=== PATIENT | female | born 1990 | race Caucasian/White ===

== ENCOUNTER 2019-02-12 00:34 | Emergency (ER) | payer MEDICARE, MEDICAID, BC ==
[~2019-02-12] VITALS: Ht 172.7 cm; Wt 68.0 kg
[2019-02-12 00:39] VITALS: BP 134/82
--- NOTE | 2019-02-12 00:39 | ED.ADGEN ---
Past History Past Medical History: Anxiety, Depression Adult General Chief Complaint Chief Complaint ". I ve been puking non- stop tonight... I did have two shots.. and a beer... but I think I am having an allergic reaction..." [facility] HPI Patient is a 28 year old female who presents with above hx and complaints of allergic reaction. Patient has had vomiting. Point of dry heaves. Patient states last time she had symptoms like this she had intake of coconut. 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 He does admit to drinking some alcohol tonight. No other suspicious food intake other than some stew. Patient denies any risk of no recent travel or specific ill contacts. Review of Systems Review of Systems Constitutional: Denies fever or chills [] Eyes: Denies change in visual acuity, redness, or eye pain [] HENT: Denies nasal congestion or sore throat [] Respiratory: Denies cough or shortness of breath [] Cardiovascular: No additional information not addressed in HPI [] GI: Complaints of abdominal pain, nausea, vomiting,. Denies bloody stools or diarrhea [] : Denies dysuria or hematuria [] Musculoskeletal: Denies back pain or joint pain [] Integument: Denies rash or skin lesions [] Neurologic: Denies headache, focal weakness or sensory changes [] Endocrine: Denies polyuria or polydipsia [] All other systems were reviewed and found to be within normal limits, except as documented in this note. Family History Family History Non-contributory Current Medications Current Medications Current Medications Medications (Trade) Dose Ordered Sig/Saeid Start Time Stop Time Status Last Admin Dose Admin Albuterol/ Ipratropium (Duoneb) 3 ml 1X ONCE 02/12/19 01:00 02/12/19 01:01 DC 02/12/19 01:23 3 ML Diphenhydramine HCl (Benadryl) 50 mg 1X ONCE 02/12/19 01:00 02/12/19 01:01 DC 02/12/19 01:27 50 MG Famotidine (Pepcid Vial) 20 mg 1X ONCE 02/12/19 01:00 02/12/19 01:01 DC 02/12/19 01:27 20 MG Lactated Ringer's 1,000 ml @ 1,000 mls/hr Q1H 02/12/19 01:00 02/12/19 01:59 DC 02/12/19 01:27 1,000 MLS/HR Magnesium Hydroxide (Milk Of Magnesia) 2,400 mg 1X ONCE 02/12/19 01:30 02/12/19 01:31 DC 02/12/19 01:27 2,400 MG Methylprednisolone Sodium Succinate (SOLU-Medrol 125MG VIAL) 125 mg 1X ONCE 02/12/19 01:00 02/12/19 01:01 DC 02/12/19 01:27 125 MG See Nursing for home med. Allergies Allergies Allergies Coded Allergies Type Severity Reaction Last Updated Verified No Known Drug Allergies 02/12/19 No Physical Exam Physical Exam Constitutional: moderate acute distress, non-toxic appearance. [] HENT: Normocephalic, atraumatic, bilateral external ears normal, oropharynx moist, no oral exudates, nose normal. [] Eyes: PERRLA, EOMI, conjunctiva normal, no discharge. [] Neck: Normal range of motion, no tenderness, supple, no stridor. [] Cardiovascular: Tachycardia Heart rate regular rhythm, no murmur [] Lungs & Thorax: Bilateral breath sounds equal at apexes with few scattered wheezes on auscultation [] Abdomen: Bowel sounds hyperactive, soft, no tenderness, no masses, no pulsatile masses. [] Skin: Warm, dry, no erythema, no rash. [] tattoos. Back: No tenderness, no CVA tenderness. [] Extremities: No tenderness, no cyanosis, no clubbing, ROM intact, no edema. [] Neurologic: Alert and oriented X 3, normal motor function, normal sensory function, no focal deficits noted. [] Psychologic: Affect anxious, judgement normal, mood normal. [] Current Patient Data Vital Signs Vital Signs Date Time Temp Pulse Resp B/P (MAP) Pulse Ox O2 Delivery O2 Flow Rate FiO2 02/12/19 01:27 99 Room Air 02/12/19 00:39 98.4 93 18 Lab Results Laboratory Tests Test 02/12/19 01:15 02/12/19 01:55 White Blood Count 10.7 x10^3/uL (4.0-11.0) Red Blood Count 4.98 x10^6/uL (3.50-5.40) Hemoglobin 13.7 g/dL (12.0-15.5) Hematocrit 40.4 % (36.0-47.0) Mean Corpuscular Volume 81 fL (79-100) Mean Corpuscular Hemoglobin 28 pg (25-35) Mean Corpuscular Hemoglobin Concent 34 g/dL (31-37) Red Cell Distribution Width 14.0 % (11.5-14.5) Platelet Count 218 x10^3/uL (140-400) Neutrophils (%) (Auto) 71 % (31-73) Lymphocytes (%) (Auto) 20 % (24-48) L Monocytes (%) (Auto) 6 % (0-9) Eosinophils (%) (Auto) 1 % (0-3) Basophils (%) (Auto) 1 % (0-3) Neutrophils # (Auto) 7.7 x10^3uL (1.8-7.7) Lymphocytes # (Auto) 2.2 x10^3/uL (1.0-4.8) Monocytes # (Auto) 0.7 x10^3/uL (0.0-1.1) Eosinophils # (Auto) 0.1 x10^3/uL (0.0-0.7) Basophils # (Auto) 0.1 x10^3/uL (0.0-0.2) Prothrombin Time 11.1 SEC (9.4-11.4) Prothrombin Time INR 1.1 (0.9-1.1) Activated Partial Thromboplast Time 28 SEC (23-33) Sodium Level 139 mmol/L (136-145) Potassium Level 4.4 mmol/L (3.5-5.1) Chloride Level 105 mmol/L (98-107) Carbon Dioxide Level 20 mmol/L (21-32) L Anion Gap 14 (6-14) Blood Urea Nitrogen 10 mg/dL (7-20) Creatinine 1.0 mg/dL (0.6-1.0) Estimated GFR (Cockcroft-Gault) 67.0 Glucose Level 93 mg/dL (70-99) Calcium Level 9.0 mg/dL (8.5-10.1) Magnesium Level 1.8 mg/dL (1.8-2.4) Total Bilirubin 0.3 mg/dL (0.2-1.0) Direct Bilirubin 0.1 mg/dL (0.0-0.2) Aspartate Amino Transferase (AST) 28 U/L (15-37) Alanine Aminotransferase (ALT) 18 U/L (14-59) Alkaline Phosphatase 63 U/L (46-116) Creatine Kinase 140 U/L (26-192) Troponin I Quantitative < 0.017 ng/mL (0-0.055) Total Protein 7.8 g/dL (6.4-8.2) Albumin 3.9 g/dL (3.4-5.0) Amylase Level 48 U/L (25-115) Lipase 89 U/L (73-393) Urine Collection Type Unknown Urine Color Straw Urine Clarity Clear Urine pH 5.5 Urine Specific [place] <=1.005 Urine Protein Neg (NEG-TRACE) Urine Glucose (UA) Neg mg/dL (NEG) Urine Ketones (Stick) Neg mg/dL (NEG) Urine Blood Neg (NEG) Urine Nitrite Neg (NEG) Urine Bilirubin Neg (NEG) Urine Urobilinogen Dipstick 0.2 mg/dL (0.2 mg/dL) Urine Leukocyte Esterase Neg (NEG) Urine RBC 0 /HPF (0-2) Urine WBC 0 /HPF (0-4) Urine Squamous Epithelial Cells Few /LPF Urine Bacteria Few /HPF (0-FEW) Urine Opiates Screen Neg (NEG) Urine Methadone Screen Neg (NEG) Urine Barbiturates Neg (NEG) Urine Phencyclidine Screen Neg (NEG) Urine Amphetamine/Methamphetamine Neg (NEG) Urine Benzodiazepines Screen Neg (NEG) Urine Cocaine Screen Neg (NEG) Urine Cannabinoids Screen Pos (NEG) Urine Ethyl Alcohol Pos (NEG) EKG EKG My interpretation of EKG shows a sinus rhythm at 95 bpm. no acute morphology [] Radiology/Procedures Radiology/Procedures [][place] [address] IMAGING REPORT Signed PATIENT: NICOLASA CHAVES ACCOUNT: [id number] : 1990 LOCATION: ER AGE: 28 SEX: F EXAM STATUS: DEP ER ORD. PHYSICIAN: BRIDGETTE PENA MD REASON: NAUSEA, VOMITING. HX Amenorrhea, SCOLIOSIS PROCEDURE: ACUTE ABDOMEN SERIES Acute abdominal series: Reason for examination: Nausea and vomiting. History of amenorrhea and scoliosis. The heart size is normal. Mediastinum is unremarkable. Lung dougherty are clear. There is no gross organomegaly. Psoas muscles are symmetric. The bowel gas pattern is nonspecific with no abnormally dilated bowel loops or evidence of obstruction. No abnormal calcifications are identified. No acute bony abnormality seen. There is a mild rotatory thoracolumbar scoliosis. IMPRESSION: No acute cardiopulmonary disease. Nonspecific nonobstructive bowel gas pattern. Mild rotatory thoracolumbar scoliosis. Electronically signed by: Andria Tapia MD (02/12/2019 4:37 AM) [facility] DICTATED AND SIGNED BY: ANDRIA TAPIA MD DATE: 02/12/19 0437 CC: BRIDGETTE PENA MD; NON,STAFF ~ Course & Med Decision Making Course & Med Decision Making Pertinent Labs and Imaging studies reviewed. (See chart for details). Patient take Zantac 150 mg twice a day. Patient take Benadryl 25-50 mg 4 times a day. Patient take prednisone 50 mg a day. Patient take MDI 2 puffs 4 times a day. Patient follow-up primary care. Patient expect diarrhea by morning. Return if any concerns. [] Final Impression Final Impression 1. Allergic Reaction[] 2. Nausea and vomiting Dragon Disclaimer Dragon Disclaimer This electronic medical record was generated, in whole or in part, using a voice recognition dictation system. Dragon Disclaimer This chart was dictated in whole or in part using Voice Recognition software in a busy, high-work load, and often noisy Emergency Department environment. It may contain unintended and wholly unrecognized errors or omissions. BRIDGETTE PENA MD Feb 12, 2019 00:39
[2019-02-12] MEDS ORDERED: methylPREDNISolone SOD SUCC PF 125 MG/2 ML VIAL. IV ONE (01:00)
[2019-02-12] MEDS ORDERED: IV RINGERS SOLUTION,LACTATED 1,000 ML IV SCH (01:00)
[2019-02-12] MEDS ORDERED: IPRATRPIUM/ALBUTEROL 0.5/2.5MG 3 ML NEBU. NEB ONE (01:00)
[2019-02-12] MEDS ORDERED: diphenhydrAMINE 50 MG/ML VIAL IV ONE (01:00)
[2019-02-12] MEDS ORDERED: FAMOTIDINE 20 MG/2 ML VIAL IVP ONE (01:00)
--- NOTE | 2019-02-12 01:00 | EKG ---
[address] [address] Test Date: 2019-02-12 Test Time: 00:59:59 Pat Name: NICOLASA CHAVES Department: Room: Gender: F Public Welfare Worker: : 1990 Requested By: BRIDGETTE PENA Order Number: [id number] Reading MD: Measurements Intervals [place] Rate: 92 P: 39 NH: 134 QRS: 69 QRSD: 90 T: 23 QT: 356 QTc: 445 Interpretive Statements SINUS RHYTHM NORMAL ECG RI6.01 No previous ECG available for comparison
[2019-02-12] MEDS ORDERED: MAGNESIUM HYDROXIDE 2,400 MG/30 ML ORAL.SUSP. PO ONE (01:30)
[2019-02-12 01:58] LABS: ALBUMIN 3.9 g/dL (3.4-5.0); DIRECT BILIRUBIN 0.1 mg/dL (0.0-0.2); MAGNESIUM 1.8 mg/dL (1.8-2.4); POTASSIUM 4.4 mmol/L (3.5-5.1); TOTAL BILIRUBIN 0.3 mg/dL (0.2-1.0); TOTAL PROTEIN 7.8 g/dL (6.4-8.2)
[2019-02-12 01:59] LABS: BASO # 0.1 x10^3/uL (0.0-0.2); BASO % 1 % (0-3); EOS # 0.1 x10^3/uL (0.0-0.7); EOS % 1 % (0-3); HEMATOCRIT 40.4 % (36.0-47.0); HEMOGLOBIN 13.7 g/dL (12.0-15.5); LYMPH # 2.2 x10^3/uL (1.0-4.8); LYMPH % 20 % (24-48); MEAN CORPUSCULAR HEMOGLOBIN 28 pg (25-35); MEAN CORPUSCULAR HGB CONC 34 g/dL (31-37); MEAN CORPUSCULAR VOLUME 81 fL (79-100); MONO # 0.7 x10^3/uL (0.0-1.1); MONO % 6 % (0-9); NEUT # 7.7 x10^3uL (1.8-7.7); NEUT % 71 % (31-73); PLATELET COUNT 218 x10^3/uL (140-400); RED BLOOD COUNT 4.98 x10^6/uL (3.50-5.40); WHITE BLOOD COUNT 10.7 x10^3/uL (4.0-11.0)
[2019-02-12 02:33] LABS: BILIRUBIN,URINE NEG (NEG); CLARITY,URINE CLEAR; COLOR,URINE STRAW; GLUCOSE,URINE NEG (NEG); NITRITE,URINE NEG (NEG); UROBILINOGEN,URINE 0.2 mg/dL (0.2 mg/dL)
[2019-02-12 02:34] LABS: BACTERIA,URINE FEW /HPF (0-FEW); RBC,URINE 0 /HPF (0-2); SQUAMOUS EPITHELIAL CELL,UR FEW /LPF; WBC,URINE 0 /HPF (0-4)
[2019-02-12 02:38] LABS: AMPHETAMINE/METHAMPHETAMINE NEG (NEG); BARBITURATES NEG (NEG); BENZODIAZEPINES NEG (NEG); CANNABINOIDS POS (NEG); COCAINE NEG (NEG); METHADONE NEG (NEG); OPIATES NEG (NEG); PHENCYCLIDINE NEG (NEG)
[2019-02-12] MEDS ORDERED: PRED50TA PO (03:56)
[2019-02-12] MEDS ORDERED: ONDA8TAB9 PO (03:56)
[2019-02-12] MEDS ORDERED: RANI-376 PO (03:56)
--- NOTE | 2019-02-12 04:40 | RAD ---
Acute abdominal series: Reason for examination: Nausea and vomiting. History of amenorrhea and scoliosis. The heart size is normal. Mediastinum is unremarkable. Lung dougherty are clear. There is no gross organomegaly. Psoas muscles are symmetric. The bowel gas pattern is nonspecific with no abnormally dilated bowel loops or evidence of obstruction. No abnormal calcifications are identified. No acute bony abnormality seen. There is a mild rotatory thoracolumbar scoliosis. IMPRESSION: No acute cardiopulmonary disease. Nonspecific nonobstructive bowel gas pattern. Mild rotatory thoracolumbar scoliosis. Electronically signed by: Andria Kuo MD (02/12/2019 4:37 AM) [facility]
== END 2019-02-12 04:00 | disposition home or self-care (01) ==
LOC: ER 00:34
DX: T78.40XA Allergy, unspecified, initial encounter (principal); R11.2 Nausea with vomiting, unspecified; X58.XXXA Exposure to other specified factors, initial encounter
CPT/HCPCS: 36415; 74022; 80048; 80076; 80307; 81001; 82150; 82550; 83690; 83735; 84484; 85025; 85610; 85730; 93005; 94640; 96361; 96374; 96375; 99285; J1200; J2930; J3490; J7120; J7620